=== PATIENT | female | born 1980 | race Caucasian/White ===

== ENCOUNTER 2017-11-28 11:31 | Emergency (ER) | payer BC ==
[2017-11-28 11:53] VITALS: BP 123/78
--- NOTE | 2017-11-28 12:25 | UC ---
Complaint Female HPI - HPI Summary HPI Summary: pain and burning with urination for 1 week some mid back pain, began fevers and chills today---no nausea/vomiting vaginal discharge or open areas - History Of Current Complaint Chief Complaint: UCGU Stated Complaint: FEVER URINARY ISSUE Time Seen by Provider: 11/28/17 12:16 Hx Obtained From: Patient Hx Last Menstrual Period: iud ?: No Onset/Duration: Sudden Onset, Lasting Weeks - 1, Worse Since - past 1-2 days Timing: Constant Pain Intensity: 3 Pain Scale Used: 0-10 Numeric Character: Cramping Aggravating Factor(s): Urination Alleviating Factor(s): Position Associated Signs And Symptoms: Positive: Fever - subjective - Allergies/Home Medications Allergies/Adverse Reactions: Allergies Allergy/AdvReac Type Severity Reaction Status Date / Time No Known Allergies Allergy Verified 11/28/17 12:25 Home Medications: Home Medications Acyclovir 1 tab PO DAILY PRN 11/28/17 [History Confirmed 11/28/17] Albuterol HFA INHALER* [Ventolin HFA Inhaler*] 1 - 2 puff INH Q4HR PRN 11/28/17 [History Confirmed 11/28/17] LORazepam [Ativan 0.5 MG TAB] 1 tab PO DAILY PRN 11/28/17 [History Confirmed ] diPHENhydraMINE PO* [Benadryl PO 25 MG TAB*] 1 tab PO ONCE PRN 11/28/17 [ History Confirmed 11/28/17] PMH/Surg Hx/FS Hx/Imm Hx Previously Healthy: Yes Psychological History: Anxiety - Surgical History Surgical History: None - Family History Known Family History: Positive: None - Social History Occupation: Employed Full-time Lives: With Family Alcohol Use: Weekly Substance Use Type: None Smoking Status (MU): Light Every Day Tobacco Smoker Review of Systems Constitutional: Negative Skin: Negative Eyes: Negative ENT: Negative Respiratory: Negative Cardiovascular: Negative Gastrointestinal: Negative Genitourinary: Dysuria, Frequency, Urgency Motor: Negative Neurovascular: Negative Musculoskeletal: Negative Neurological: Negative Psychological: Negative Is Patient Immunocompromised?: No All Other Systems Reviewed And Are Negative: Yes Physical Exam Triage Information Reviewed: Yes Appearance: Well-Appearing, No Pain Distress, Well-Nourished Vital Signs: Initial Vital Signs Temp 99.1 F 11/28/17 11:48 Pulse 90 11/28/17 11:48 Resp 18 11/28/17 11:48 BP 123/78 11/28/17 11:48 Pulse Ox 99 11/28/17 11:48 Vital Signs Reviewed: Yes Eye Exam: Normal Eyes: Positive: Conjunctiva Clear ENT Exam: Normal ENT: Positive: Normal ENT inspection, Hearing grossly normal. Negative: Trismus , Muffled voice, Hoarse voice Dental Exam: Normal Neck exam: Normal Neck: Positive: Supple, Nontender Respiratory Exam: Normal Respiratory: Positive: Chest non-tender, No respiratory distress, No accessory muscle use Cardiovascular Exam: Normal Cardiovascular: Positive: RRR, No Murmur, Pulses Normal, Brisk Capillary Refill Abdominal Exam: Normal Abdomen Description: Positive: Nontender, No Organomegaly, Soft, CVA Tenderness (L). Negative: CVA Tenderness (R), Distended, Guarding, McBurney's Point Tenderness Bowel Sounds: Positive: Present Musculoskeletal Exam: Normal Musculoskeletal: Positive: Strength Intact, ROM Intact, No Edema Neurological Exam: Normal Neurological: Positive: Alert, Muscle Tone Normal Psychological Exam: Normal Skin Exam: Normal Diagnostics - Laboratory Diagnostic Studies Completed/Ordered: ua +3 blood, +2 leukoesterase, negative preg Complaint Female Dx - Course Course Of Treatment: Rocephin times ne culture urine, bactrim pyridium increase fluids follow with pcp to ed for worsening sx - Differential Dx/Diagnosis Provider Diagnoses: Uti / kidney infection Discharge - Sign-Out/Discharge Documenting (check all that apply): Discharge/Admit/Transfer - Discharge Plan Condition: Stable Disposition: HOME Prescriptions: Phenazopyridine TAB* [Pyridium 100 mg TAB*] 100 mg PO TID PRN #6 tab PRN Reason: urinary pain/burning Sulfamethox/Trimethoprim DS* [Bactrim DS 800/160 TAB*] 1 tab PO BID #14 tab Patient Education Materials: Urinary Tract Infection in Women (ED), Kidney Infection (ED) Referrals: Bridget Mckinney MD [Primary Care Provider] - 2 Days - Billing Disposition and Condition Condition: STABLE Disposition: Home
[2017-11-28] MEDS ORDERED: cefTRIAXone VIAL(*) 1,000 MG VIAL IM ONE (12:27)
[2017-11-28] MEDS ORDERED: Lidocaine 1%* 5 ML VIAL INJ ONE (12:27)
--- NOTE | 2017-11-29 15:39 | UC ---
- Progress Note Progress Note: Urine culture final is "mixed benji; possible contamination." Please call pt and if symptoms worsening - needs to be seen again. If feeling better - no change Discharge - Sign-Out/Discharge Documenting (check all that apply): Post-Discharge Follow Up - Discharge Plan Condition: Stable Disposition: HOME Prescriptions: Phenazopyridine TAB* [Pyridium 100 mg TAB*] 100 mg PO TID PRN #6 tab PRN Reason: urinary pain/burning Sulfamethox/Trimethoprim DS* [Bactrim DS 800/160 TAB*] 1 tab PO BID #14 tab Patient Education Materials: Urinary Tract Infection in Women (ED), Kidney Infection (ED) Referrals: Bridget Mckinney MD [Primary Care Provider] - 2 Days - Billing Disposition and Condition Condition: STABLE Disposition: Home
== END 2017-11-28 12:39 | disposition home or self-care (01) ==
LOC: UCEAST 11:31
DX: N39.0 Urinary tract infection, site not specified (principal); R50.9 Fever, unspecified; Z32.02 Encounter for pregnancy test, result negative; F41.9 Anxiety disorder, unspecified; F17.200 Nicotine dependence, unspecified, uncomplicated
CPT/HCPCS: 81003; 84702; 87086; 96372; 99212; G0463; J0696

== ENCOUNTER 2017-11-30 14:40 | Emergency (ER) | payer BC ==
[2017-11-30 14:55] VITALS: BP 115/80
--- NOTE | 2017-11-30 15:15 | UC ---
Complaint Female HPI - HPI Summary HPI Summary: Patient treated for UTI 2 days ago, has had some relief but still has intermittent abdominal pain, has had unprotected sex, new relationship, does use condoms usually. - History Of Current Complaint Chief Complaint: UCGU Stated Complaint: FOLLOW UP APPT. UTI Time Seen by Provider: 11/30/17 14:57 Hx Obtained From: Patient Hx Last Menstrual Period: 1.5 months Onset/Duration: Sudden Onset, Lasting Days Timing: Intermittent Severity Initially: Mild Severity Currently: Mild Pain Intensity: 0 Aggravating Factor(s): Nothing - Allergies/Home Medications Allergies/Adverse Reactions: Allergies Allergy/AdvReac Type Severity Reaction Status Date / Time No Known Allergies Allergy Verified 11/30/17 14:55 PMH/Surg Hx/FS Hx/Imm Hx Previously Healthy: Yes - Surgical History Surgical History: None - Family History Known Family History: Positive: None Negative: Cardiac Disease, Hypertension - Social History Alcohol Use: Weekly Substance Use Type: None Smoking Status (MU): Light Every Day Tobacco Smoker Review of Systems Constitutional: Negative Skin: Negative Eyes: Negative ENT: Negative Respiratory: Negative Cardiovascular: Negative Gastrointestinal: Negative Genitourinary: Dysuria, Urgency Motor: Negative Neurovascular: Negative Musculoskeletal: Negative Neurological: Negative Psychological: Negative Is Patient Immunocompromised?: No All Other Systems Reviewed And Are Negative: Yes Physical Exam Triage Information Reviewed: Yes Appearance: Well-Appearing, Well-Nourished, Pain Distress Vital Signs: Initial Vital Signs Temp 98.0 F 11/30/17 14:49 Pulse 71 11/30/17 14:49 Resp 16 11/30/17 14:49 BP 115/80 11/30/17 14:49 Pulse Ox 100 11/30/17 14:49 Vital Signs Reviewed: Yes Eye Exam: Normal ENT Exam: Normal Dental Exam: Normal Neck exam: Normal Respiratory Exam: Normal Respiratory: Positive: Chest non-tender, Lungs clear, Normal breath sounds Cardiovascular Exam: Normal Cardiovascular: Positive: RRR, No Murmur, Pulses Normal Abdominal Exam: Normal Abdomen Description: Positive: No Organomegaly, Soft, Other: - lower abdomen tender with palpation Bowel Sounds: Positive: Present Musculoskeletal Exam: Normal Neurological Exam: Normal Psychological Exam: Normal Skin Exam: Normal Complaint Female Dx - Course Course Of Treatment: hx obtained, exam performed, medications reviewed, Urine GC /CL, urine preganancy performed, - Differential Dx/Diagnosis Provider Diagnoses: Urinary symptoms. STD testing Discharge - Sign-Out/Discharge Documenting (check all that apply): Discharge/Admit/Transfer - Discharge Plan Condition: Stable Disposition: HOME Patient Education Materials: Dysuria (ED) Referrals: Bridget Mckinney MD [Primary Care Provider] - Additional Instructions: 1. Continue with your medication as you state it is helping with the symtpoms 2. Continue increased fluid intake 3. your results will be available in 48 hours we call with any positive results. 4. If you develop any sever abdominal pain report to the ER. - Billing Disposition and Condition Condition: STABLE Disposition: Home
--- NOTE | 2017-12-04 10:16 | UC ---
- Progress Note Progress Note: neg GC/CH no change ljj 12/04/2017 Discharge - Sign-Out/Discharge Documenting (check all that apply): Post-Discharge Follow Up - Discharge Plan Condition: Stable Disposition: HOME Patient Education Materials: Dysuria (ED) Referrals: Bridget Mckinney MD [Primary Care Provider] - Additional Instructions: 1. Continue with your medication as you state it is helping with the symtpoms 2. Continue increased fluid intake 3. your results will be available in 48 hours we call with any positive results. 4. If you develop any sever abdominal pain report to the ER. - Billing Disposition and Condition Condition: STABLE Disposition: Home
== END 2017-11-30 15:42 | disposition home or self-care (01) ==
LOC: UCEAST 14:40
DX: N39.0 Urinary tract infection, site not specified (principal); R10.30 Lower abdominal pain, unspecified; Z11.3 Encounter for screening for infections with a predominantly sexual mode of transmission; F17.200 Nicotine dependence, unspecified, uncomplicated
CPT/HCPCS: 84702; 87491; 87591; 99211; G0463